=== PATIENT | male | born 1975 | race Caucasian/White ===

== ENCOUNTER 2024-04-12 15:26 | Day surgery (SDC) | payer BC ==
[2024-04-12] MEDS ORDERED: Sodium Chloride 0.9(Preservative Free) 10 ML IJ ONE (15:27)
[2024-04-12] MEDS ORDERED: LIDOCAINE HCL 1% AMPUL 5 ML IJ ONE (15:27)
[2024-04-12] MEDS ORDERED: Decadron 4 MG INJ IV ONE (15:27)
--- NOTE | 2024-04-12 19:23 | XRAY ---
Indication: Cervical BRITANY. Intraoperative fluoroscopy provided for 28 seconds. 2 digital spot image submitted for interpretation demonstrates posterior needle tip projecting posterior to lower cervical spine. Small amount of contrast injected for all needle tip placement. Correlate with intraoperative findings/report.
--- NOTE | 2024-04-13 09:01 | XRAY ---
28 seconds of fluoroscopy used in surgery for a cervical BRITANY.
== END 2024-04-12 17:47 | disposition home or self-care (01) ==
LOC: SDC-PAIN 15:26
PROVIDERS: ATTEND Psychiatry & Neurology Pain Medicine
DX: M54.12 Radiculopathy, cervical region (principal); E11.9 Type 2 diabetes mellitus without complications
CPT/HCPCS: 62321; 72040; 77003; 82947; J1100; Q9966